=== PATIENT | male | born 1965 | race African-American/Black ===

== ENCOUNTER 2020-02-03 14:10 | Inpatient (IN) | payer OTHER ==
[~2020-02-03] VITALS: Ht 175.3 cm; Wt 74.4 kg
--- NOTE | 2020-02-03 14:10 | NUR ---
BIB SELF C/O MID STERNAL CHEST PAIN NON RADIATING FOR 3 DAYS, TO ER BED 11, HOOKED TO JAIL OFFICER, CHANGED TO HOSP GOWN, WARM BLANKET PROVIDED, PATIENT AAO x4, BREATHING EVEN AND UNLABORED. AWAITING MD CLARK
--- NOTE | 2020-02-03 14:39 | NUR ---
DR SANABRIA AT BEDSIDE
[2020-02-03] MEDS ORDERED: ATOR80TA PO (14:53)
[2020-02-03] MEDS ORDERED: CARV3.122 PO (14:53)
[2020-02-03] MEDS ORDERED: SACU1TAB PO (14:53)
[2020-02-03] MEDS ORDERED: ASPI-1420 PO (14:53)
[2020-02-03] MEDS ORDERED: SPIR25TA6 PO (14:53)
[2020-02-03 15:00] LABS: BASOPHILS % (AUTO) 0.8 % (0.0-2.0); EOSINOPHILS % (AUTO) 5.6 % (0.0-6.0); HEMATOCRIT 37 % (39-51); HEMOGLOBIN 12.1 g/dL (13.5-17.5); LYMPHOCYTES # (AUTO) 1.4 /CMM (0.8-4.8); LYMPHOCYTES % (AUTO) 29.1 % (20.0-44.0); MEAN CORPUSCULAR HGB CONC 33 g/dl (31.0-36.0); MEAN CORPUSCULAR VOLUME 85 fL (80-96); MONOCYTES # (AUTO) 0.4 /CMM (0.1-1.30); NEUTROPHILS # (AUTO) 2.7 /CMM (1.8-8.9); NEUTROPHILS % (AUTO) 55.5 % (43.0-81.0); PLATELET COUNT (AUTO) 214 /CMM (150-450); RED BLOOD CELL COUNT(AUTO) 4.29 MIL/uL (4.5-6.0); WHITE BLOOD COUNT (AUTO) 4.9 K/uL (4.3-11.0)
--- NOTE | 2020-02-03 15:01 | NUR ---
RAPID COVID SWAB DONE AND SENT TO LAB
[2020-02-03 15:09] LABS: CREATININE 1.2 mg/dL (0.6-1.3); POTASSIUM 3.3 mmol/L (3.5-5.1)
[2020-02-03 15:27] LABS: ALBUMIN 3.6 g/dL (3.4-5.0); BILIRUBIN,DIRECT 0.2 mg/dL (0.0-0.2); BILIRUBIN,TOTAL 0.5 mg/dL (0.2-1.0); TOTAL PROTEIN, SERUM 7.9 g/dL (6.4-8.2)
[2020-02-03] MEDS ORDERED: ASPIRIN 325 MG TABLET PO ONE (16:00)
[2020-02-03] MEDS ORDERED: IOHEXOL-350 100 ML VIAL IV ONE (16:03)
--- NOTE | 2020-02-03 16:09 | NUR ---
PICKED UP BY TUNG FLORENCE VIA RENAE FOR CT SCAN
--- NOTE | 2020-02-03 16:19 | NUR ---
ROOM GIVEN [id number] TELE.
[2020-02-03] MEDS ORDERED: ASPIRIN 325 MG TABLET ONE (16:20)
[2020-02-03] MEDS ORDERED: ONDANSETRON HCL/PF 4 MG/2 ML VIAL IVP PRN (16:30)
[2020-02-03] MEDS ORDERED: NITROGLYCERIN 0.4 MG/TAB BOTTLE SL PRN (16:30)
[2020-02-03] MEDS ORDERED: MAGNESIUM HYDROXIDE 30 ML UDC PO PRN (16:30)
[2020-02-03] MEDS ORDERED: MAG HYDROX/AL HYDROX/SIMETH 30 ML UDC PO PRN (16:30)
[2020-02-03] MEDS ORDERED: ACETAMINOPHEN 325 MG TABLET PO PRN (16:30)
[2020-02-03] MEDS ORDERED: Z GUARD REMEDY 2 OZ OINT TP PRN (16:30)
[2020-02-03] MEDS ORDERED: POTASSIUM CHLORIDE 20 MEQ TAB.PRT.SR PO ONE (16:30)
[2020-02-03] MEDS ORDERED: HYDROCODONE/APAP 5/325MG TABLET PO PRN (16:30)
[2020-02-03] MEDS ORDERED: TEMAZEPAM 15 MG CAPSULE PO PRN (16:30)
--- NOTE | 2020-02-03 16:30 | NUR ---
REPORT GIVEN TO ALBINO PIZANO OF TELE UNIT
--- NOTE | 2020-02-03 16:48 | NUR ---
PATIENT BACK FROM CT SCAN
--- NOTE | 2020-02-03 17:07 | NUR ---
CLARIFIED W LEANN STARKS DNP, PATIENT CAN EAT.
[2020-02-03 17:15] VITALS: BP 136/86
--- NOTE | 2020-02-03 17:15 | NUR ---
Received patient via gurney. Patient with stable gait , able to ambulate. Alert and oriented x4 Patient admitted to Tele , SR on monitor with e levanted p-wave HR 98.Noted with IACD on the left upper chest. Patient's skin assessed and no issues found. Patient denies any pain at this time , not in any distress. Patient on room air tolerated well. IV access to the right AC g 20 hl, flushing well. Patient oriented to room and instructed to use call light for assistance; pt verbalized understanding. SAfety precautions implemented. Potassium PO administrated as ordered. Admit orders received. Will continue to monitor
[2020-02-03 20:00] VITALS: BP 131/72
--- NOTE | 2020-02-03 20:00 | NUR ---
Patient in bed resting comfortably. Patient awake, alert, and oriented x4, able to make needs known. Patient complains of chest pain and rates pain 7 on a 0-10 numerical scale. Will administer pain medication per MD order. Patient breathing even and unlabored on room air. No SOB or acute respiratory distress noted. Noted IV access on right forearm, 20 gauge, patent, dressing dry and intact, no redness, or infiltration noted. Safety measure in place, bed is in the lowest level, bed is locked, alarm is on, side rails x2 are up, and call light is within reach. Will continue to monitor.
--- NOTE | 2020-02-03 20:06 | NUR ---
Patient complains of chest pain. Patient describe pain on the left chest as sharp and rates pain a 7 on a 0-10 numerical scale. Administered PRN [place] per MD order. Will continue to monitor.
[2020-02-04] VITALS: BP 123/58
[2020-02-04 04:00] VITALS: BP_SYST 123; BP_SYST 131; BP_DIAS 58; BP_DIAS 88
--- NOTE | 2020-02-04 06:38 | NUR ---
RN CLOSING NOTE: Patient in bed sleeping comfortably. Patient breathing even and unlabored. No SOB or acute respiratory distress noted. Safety measures are maintained, bed is in the lowest level, bed is locked, side rails x2 are up, and call light is within reach. Will endorse to morning nurse.
[2020-02-04] MEDS: PANTOPRAZOLE 40 MG TABLET.DR PO SCH (06:46)
--- NOTE | 2020-02-04 07:30 | NUR ---
Tele/RN - Assessment Patient is awake, A/O x 4, denies chest pain at this time, no apparent distress, stable on room air, tele shows NSR. Saline lock on the RFA is patent and intact with no signs of infiltration. Skin is intact. Patient independent with ADLs, ambulates with steady gait. Labs reviewed, no critical results. Patient updated on plan of care and in agreement. Will continue with current medical management.
[2020-02-04 08:00] VITALS: BP 126/65
[2020-02-04] MEDS: MORPHINE SULFATE INJ 2 MG/ML DISP.SYRIN IV PRN ×3 (08:37→21:27)
[2020-02-04 08:56] LABS: CALCIUM, SERUM 8.4 mg/dL (8.5-10.1); CREATININE 1.1 mg/dL (0.6-1.3); PHOSPHORUS 2.7 mg/dL (2.5-4.9); POTASSIUM 3.7 mmol/L (3.5-5.1)
[2020-02-04] MEDS ORDERED: ASPIRIN 81 MG TAB.CHEW PO SCH (09:00)
[2020-02-04 09:03] LABS: BASOPHILS % (AUTO) 0.9 % (0.0-2.0); EOSINOPHILS % (AUTO) 7.6 % (0.0-6.0); HEMATOCRIT 38 % (39-51); LYMPHOCYTES # (AUTO) 1.8 /CMM (0.8-4.8); LYMPHOCYTES % (AUTO) 37.4 % (20.0-44.0); MEAN CORPUSCULAR HGB CONC 32 g/dl (31.0-36.0); MEAN CORPUSCULAR VOLUME 86 fL (80-96); MONOCYTES # (AUTO) 0.6 /CMM (0.1-1.30); MONOCYTES % (AUTO) 12.3 % (2.0-12.0); NEUTROPHILS % (AUTO) 41.8 % (43.0-81.0); PLATELET COUNT (AUTO) 204 /CMM (150-450); WHITE BLOOD COUNT (AUTO) 4.7 K/uL (4.3-11.0)
[2020-02-04 09:11] LABS: THYROID STIMULATING HORMONE 0.261 uIU/mL (0.358-3.74)
[2020-02-04] MEDS: CARVEDILOL 3.125 MG TABLET PO SCH ×2 (14:00→16:15)
--- NOTE | 2020-02-04 14:30 | NUR ---
Tele/RN - Medication (Coreg) Per pharmacist, hold the 14:00 dose and give the 17:00 dose instead for accurate timing.
[2020-02-04] MEDS: SPIRONOLACTONE 25 MG TABLET PO SCH (15:12)
[2020-02-04] MEDS: ENOXAPARIN SODIUM 40 MG/0.4 ML DISP.SYRIN SQ SCH (15:14)
[2020-02-04 16:00] VITALS: BP 120/61
--- NOTE | 2020-02-04 17:45 | NUR ---
Tele/RN - End of shift summary No significant change in condition seen, reports occasional sharp mid-chest pain TN 8/10, Morphine 2 mg IVP given with relief, NSR on the monitor, no c/o SOB, stable on room air. Per Dr. Kirby (cardio), plan for left heart cath with possible PCI on Tuesday 02/06. Patient agreeable for procedure. Spoke with and requested to bring in home medication Entresto and she will bring it tomorrow. Will continue with current plan of care.
[2020-02-04 20:00] VITALS: BP_SYST 110; BP_SYST 156; BP_DIAS 103; BP_DIAS 58
[2020-02-04] MEDS: ATORVASTATIN 40 MG TABLET PO SCH (21:27)
[2020-02-05] VITALS (7 sets, daily range): BP systolic 107–147; BP diastolic 61–80
--- NOTE | 2020-02-05 06:00 | NUR ---
SILVICULTURIST CLOSING NOTES: PATIENT IN BED ASLEEP, EASILY AROUSABLE. A/O X4. NO S/S OF DISTRESS NOTED. NO COMPLAIN OF PAIN AT THIS TIME. CALL LIGHT WITHIN REACH. BED IN LOWEST AND LOCKED POSITION. AMBULATORY, STEADY.
--- NOTE | 2020-02-05 07:00 | NUR ---
RECEIVED A CALL LAST NIGHT FROM THE PATIENT'S , AND SHE MENTIONED THAT SHE WILL BRING THE MED ENTRESTO TODAY, ENDORSED TO RN IMMSP.
--- NOTE | 2020-02-05 07:05 | NUR ---
PULP BLEACHER OPENING NOTES RECEIVED PT AWAKE IN BED AT THIS TIME. PT AOX4. PT ABLE TO MAKE NEEDS KNOWN. NO SOB NOTED, NO S/S OF ANY ACUTE DISTRESS NOTED. PT ON EXTERNAL MEAT AND SEAFOOD MANAGER READING SR IN THE 70S. NO C/O PAIN AT THIS TIME. RESPIRATIONS ARE EVEN AND UNLABORED WITH EQUAL RISE AND FALL IN CASE. PT STABLE ON RA. IV ACCESS NOTED IN RFA G#20 INTACT, PATENT AND FLUSHING WELL. SAFETY PRECAUTION IN PLACE AND MAINTAINED AT ALL TIMES. BED IN LOWEST LOCKED POSITION, HOB ELEVATED, SIDE RAILS UP X 2, CALL LIGHT AND TABLE WITHIN REACH. WILL CONTINUE TO MONITOR.
[2020-02-05 07:26] LABS: CALCIUM, SERUM 8.8 mg/dL (8.5-10.1); CREATININE 1.1 mg/dL (0.6-1.3); POTASSIUM 4.1 mmol/L (3.5-5.1)
[2020-02-05] MEDS: PANTOPRAZOLE 40 MG TABLET.DR PO SCH (08:24)
[2020-02-05] MEDS: SPIRONOLACTONE 25 MG TABLET PO SCH (08:35)
[2020-02-05] MEDS: ASPIRIN EC 325 MG TABLET.DR PO SCH (08:35)
[2020-02-05] MEDS: CARVEDILOL 3.125 MG TABLET PO SCH ×2 (08:36→16:51)
--- NOTE | 2020-02-05 11:00 | NUR ---
PT REQUESTED DOUBLE PORTION OF FOOD FROM DR STARKS, PER DOCTORS ORDER, PT CAN HAVE DOUBLE PORTION OF FOOD. DIETARY MADE AWARE, WILL CONTINUE TO MONITOR
--- NOTE | 2020-02-05 11:15 | NUR ---
ENTRESTO 24MG/25MG (24.5 PILLS) OF PT'S HOME MEDICATION BROUGHT IN BY . MEDICATION GIVEN TO GEODETIC ADVISOR AT THIS TIME. WILL CONTINUE WITH PLAN OF CARE
[2020-02-05] MEDS: ENOXAPARIN SODIUM 40 MG/0.4 ML DISP.SYRIN SQ SCH (16:20)
[2020-02-05] MEDS: ENTRESTO PO SCH (16:54)
--- NOTE | 2020-02-05 18:54 | NUR ---
SENIOR DATABASE ADMINISTRATOR CLOSING NOTES PT AWAKE IN BED AT THIS TIME. PT REMAINED STABLE THROUGHOUT SHIFT. ALL CARE, NEED, MEDICATIONS AND TREATMENT ADMINISTERED ANTICIPATED PER ORDER. PT KEPT CLEAN AND DRY SAFETY PRECAUTION IN PLACE AND MAINTAINED AT ALL TIMES. BED IN LOWEST LOCKED POSITION, HOB ELEVATED, SIDE RAILS UP X 2, CALL LIGHT AND TABLE WITHIN REACH. WILL CONTINUE TO MONITOR.
--- NOTE | 2020-02-05 19:35 | NUR ---
CONTACT LENS CURVE GRINDER NOTES RECEIVED ON BED A/O X4,BREATHING REGULAR,NOT IN ANY FORM OF DISTRESS.ABLE TO VERBALIZED NEEDS,WITH RFA SALINE LOCK FOR MEDS,LFA AV SHUNT FOR HD ACCESS.NO COMPLIANTA AT THE MOMENT.CALL LIGHT IN REACH,NEEDS ANTICIPATED. Addendum: 02/05/20 at 2035 by QUINTIN TUCKER RN WRONG ENTRY ON NOTES
--- NOTE | 2020-02-05 19:40 | NUR ---
LONGSHORE EQUIPMENT OPERATOR NOTES RECEIVED ON BED,A/O X4,ABLE TO VERBALIZED NEEDS,SALINE LOCK RFA INTACT AND PATENT.DENIES DISCOMFORTS AT THE MOMENT.CALL LIGHT IN REACH,NEEDS ANTICIPATED.
[2020-02-05] MEDS: ATORVASTATIN 40 MG TABLET PO SCH (21:19)
[2020-02-06] VITALS: BP 116/72
[2020-02-06 04:00] VITALS: BP 114/77
--- NOTE | 2020-02-06 07:10 | NUR ---
MS RN NOTES DENIES DISCOMFORTS,SLEEP WELL THRU OUT SHIFT.IN NO ACUTE DISTRESS.
[2020-02-06 08:00] VITALS: BP 115/69
--- NOTE | 2020-02-06 08:04 | NUR ---
MS/RN OPENING NOTE RECEIVED PATIENT FROM KNITTING INSPECTOR. A/0 X4 PATIENT ON ROOM AIR, TOLERATING WELL. BREATHING EVEN, NON LABORED, NO SOB NOTED. ASHLEIGH # 20 SL INTACT AND PATENT. SAFETY MEASURES IN PLACE, BED LOCKED AND IN LOWEST POSITION, CALL LIGHT WITHIN REACH. WILL CONTINUE TO MONITOR AND ENSURE SAFETY.
[2020-02-06] MEDS: SPIRONOLACTONE 25 MG TABLET PO SCH (08:43)
[2020-02-06] MEDS: PANTOPRAZOLE 40 MG TABLET.DR PO SCH (08:43)
[2020-02-06] MEDS: ASPIRIN EC 325 MG TABLET.DR PO SCH (08:43)
[2020-02-06] MEDS: CARVEDILOL 3.125 MG TABLET PO SCH ×2 (08:44→16:40)
[2020-02-06] MEDS: ENTRESTO PO SCH ×2 (08:44→16:38)
[2020-02-06] MEDS: ENOXAPARIN SODIUM 40 MG/0.4 ML DISP.SYRIN SQ SCH (14:44)
--- NOTE | 2020-02-06 18:55 | NUR ---
MS/RN CLOSING NOTE PATIENT REMAINS IN STABLE CONDITION. A/0 X4 PATIENT ON ROOM AIR, TOLERATING WELL. BREATHING EVEN, NON LABORED, NO SOB NOTED. TELE MONITOR READING NSR 67. RFA # 20 SL INTACT AND PATENT. SAFETY MEASURES IN PLACE WILL ENDORSE TO DIGITAL STRATEGY MANAGER.
[2020-02-06 20:00] VITALS: BP 121/70
--- NOTE | 2020-02-06 20:00 | NUR ---
RN NOTE RECEIVED PT IN BED. PT IS A/A/O X4. PT IS ON RA SATING 99%, HAS UNLABORED BREATHING. SAFETYU MEASURE IN PLACE.
--- NOTE | 2020-02-06 21:45 | NUR ---
RN NOTE PT REFUSES TO HAVE PCI IN THE MORNING, AND WANTS TO LEAVE AMA ,CHARGE NURSE STEPHANIE CONTACTED DR ESCALONA , WAITING FOR TO CALL BACK.
[2020-02-06] MEDS: ATORVASTATIN 40 MG TABLET PO SCH (21:57)
--- NOTE | 2020-02-06 22:05 | NUR ---
RN NOTE CHARGE NURSE STEPHANIE TALKED TO IVY HOT MILL OBSERVER FOR DR LIAO ,INFORMED DR PT IS REFUSING PCI AND WANTS TO LEAVE AMA.
--- NOTE | 2020-02-06 23:36 | NUR ---
RN NOTE PT HEFT AMA, THOUGHT PT ABOUT RISKS OF LEAVING AMA.
--- NOTE | 2020-02-06 23:37 | NUR ---
RN NOTE ID BAND AND IV REMOVED.
== END 2020-02-06 23:35 | disposition left against medical advice (07) | DRG 190 ==
LOC: ER 14:20 → TELE 16:35
PROVIDERS: ADMIT Nurse Practitioner Acute Care; ATTEND Nurse Practitioner Acute Care
DX: I21.4 Non-ST elevation (NSTEMI) myocardial infarction (principal); F41.9 Anxiety disorder, unspecified; E11.9 Type 2 diabetes mellitus without complications; I25.2 Old myocardial infarction; I11.0 Hypertensive heart disease with heart failure; G89.29 Other chronic pain; Z71.6 Tobacco abuse counseling; Z95.810 Presence of automatic (implantable) cardiac defibrillator; Z91.19 Patient's noncompliance with other medical treatment and regimen; F15.10 Other stimulant abuse, uncomplicated; F17.210 Nicotine dependence, cigarettes, uncomplicated; I50.21 Acute systolic (congestive) heart failure
CPT/HCPCS: 36415; 71045-TC; 80048-TC; 80061-TC; 80076-TC; 83735-TC; 83880; 84100-TC; 84443-TC; 84484-TC; 85025-TC; 87081-TC; 93307-TC; C9803; G0378; G0480; J1650; J2270; Q9967

== ENCOUNTER 2020-02-26 01:06 | Emergency (ER) | payer OTHER ==
[~2020-02-26] VITALS: Ht 175.3 cm; Wt 72.6 kg
[~2020-02-26 01:06] MED LIST: ASPI-1420 PO; ATOR80TA PO; CARV3.122 PO; SACU1TAB PO; SPIR25TA6 PO
[2020-02-26 01:48] VITALS: BP 118/82
--- NOTE | 2020-02-26 02:53 | NUR ---
Patient discharged to home in stable condition. Written and verbal after care instructions given. Patient verbalizes understanding of instruction.pt. ambulatory with a steady gait
== END 2020-02-26 02:54 | disposition home or self-care (01) ==
LOC: ER 01:10
DX: F15.10 Other stimulant abuse, uncomplicated (principal); R22.32 Localized swelling, mass and lump, left upper limb; M79.642 Pain in left hand; I11.0 Hypertensive heart disease with heart failure; I50.9 Heart failure, unspecified; F17.200 Nicotine dependence, unspecified, uncomplicated; Z79.899 Other long term (current) drug therapy
CPT/HCPCS: 73120-TC

== ENCOUNTER 2020-11-24 18:26 | Inpatient (IN) | payer OTHER ==
[~2020-11-24] VITALS: Ht 175.3 cm; Wt 66.7 kg
--- NOTE | 2020-11-24 19:13 | NUR ---
BIBRA99 FRM SCHVN C/O CHEST PRESSURE, DIZZINESS AND WEAK SINCE THIS AM. ON ROOM AIR, BREATHING EVENLY AND UNLABORED, KEPT COMFORTABLE, WILL CONTINUE TO MONITOR ACCORDINGLY.
--- NOTE | 2020-11-24 19:18 | NUR ---
report given to ambrose young for rosamaria.
[2020-11-24 19:19] LABS: BASOPHILS # (AUTO) 0.1 K/uL (0.0-0.2); BASOPHILS % (AUTO) 0.8 % (0.0-2.0); EOSINOPHILS % (AUTO) 4.8 % (0.0-6.0); HEMATOCRIT 44 % (39-51); HEMOGLOBIN 14.2 g/dL (13.5-17.5); LYMPHOCYTES % (AUTO) 41.3 % (20.0-44.0); MEAN CORPUSCULAR HGB CONC 33 g/dl (31.0-36.0); MEAN CORPUSCULAR VOLUME 84 fL (80-96); MONOCYTES # (AUTO) 0.5 K/uL (0.1-1.30); NEUTROPHILS # (AUTO) 3.4 K/uL (1.8-8.9); NEUTROPHILS % (AUTO) 46.1 % (43.0-81.0); PLATELET COUNT (AUTO) 270 K/uL (150-450); RED BLOOD CELL COUNT(AUTO) 5.17 MIL/uL (4.5-6.0); WHITE BLOOD COUNT (AUTO) 7.3 K/uL (4.3-11.0)
--- NOTE | 2020-11-24 19:26 | NUR ---
RAD AT BEDSIDE
[2020-11-24 19:27] LABS: POTASSIUM 4.2 mmol/L (3.5-5.1)
[2020-11-24] MEDS ORDERED: NITROGLYCERIN PACKET 1 GM PACKET TD ONE (20:00)
[2020-11-24] MEDS ORDERED: ASPIRIN 325 MG TABLET PO ONE (20:00)
[2020-11-24] MEDS ORDERED: NITROGLYCERIN PACKET 1 GM PACKET ONE (20:01)
[2020-11-24] MEDS ORDERED: ASPIRIN 325 MG TABLET ONE (20:01)
--- NOTE | 2020-11-24 20:12 | NUR ---
COVID SWAB COLLECTED AND SENT TO LAB
[2020-11-24] MEDS ORDERED: LABETALOL 20 MG/4 ML VIAL IV PRN (21:00)
[2020-11-24] MEDS ORDERED: ACETAMINOPHEN 325 MG TABLET PO PRN (21:00)
[2020-11-24] MEDS ORDERED: ONDANSETRON HCL/PF 4 MG/2 ML VIAL IVP PRN (21:00)
[2020-11-24] MEDS ORDERED: hydrALAZINE HCL IV 20 MG VIAL IV PRN (21:00)
[2020-11-24] MEDS ORDERED: MORPHINE SULFATE INJ 2 MG/ML DISP.SYRIN IV PRN (21:00)
--- NOTE | 2020-11-24 21:42 | NUR ---
US AT BEDSIDE
--- NOTE | 2020-11-24 21:56 | NUR ---
tele 118
--- NOTE | 2020-11-24 22:18 | NUR ---
JULIANA TO CALL BACK FOR REPORT
--- NOTE | 2020-11-24 22:33 | NUR ---
REPORT GIVEN TO MIKAYLA PIZANO
--- NOTE | 2020-11-24 22:43 | NUR ---
PATIENT TRANSFERRED UNDER ACLS
--- NOTE | 2020-11-24 22:45 | NUR ---
TRANSITION MANAGERPUBLIC SAFETY OFFICER NOTE PT TRANSPORTED VIA GURNEY TO UNIT AT THIS TIME. PT ADMITTED TO TELE UNDER DR RILEY FOR ADMITTING DX OF CHEST PAIN. A/O X4, ABLE TO MAKE NEEDS KNOWN. PT IS STABLE ON ROOM AIR. NO SOB OR S/S OF RESPIRATORY DISTRESS NOTED. PT ON EXTERNAL LEG BREAKER READING SR AT 70BPM. PT HAS NO C/O PAIN OR DISCOMFORT AT THIS TIME. IV ACCESS IN RIGHT WRIST #20, INTACT AND PATENT. SKIN IS INTACT. ORIENTED PT TO STAFF, ROOM, AND UNIT. SAFETY PRECAUTIONS MAINTAINED. BED IN LOWEST LOCKED POSITION, HOB ELEVATED, SIDE RAILS UP X2. CALL LIGHT AND TABLE WITHIN REACH. WILL CONTINUE TO MONITOR.
[2020-11-24] MEDS: ENOXAPARIN SODIUM 40 MG/0.4 ML DISP.SYRIN SQ SCH (23:01)
[2020-11-24 23:20] VITALS: BP 107/69
--- NOTE | 2020-11-24 23:25 | NUR ---
RN PAIN PT C/O NON-RADIATING TIGHTNESS IN THE CHEST, RATED 8/10 ON PAIN SCALE. VSS. PER PT REQUEST, ADMINISTERED MORPHINE 2MG IV Q4H PRN FOR PAIN. WILL REASSESS IN 30 MINS AND CONTINUE TO MONITOR PT.
[2020-11-25] VITALS: BP 107/69
[2020-11-25 04:00] VITALS: BP 127/84
--- NOTE | 2020-11-25 06:21 | NUR ---
PETROLEUM REFINERY OPERATOR CLOSING NOTE PT IS AWAKE IN BED. A/O X4, ABLE TO MAKE NEEDS KNOWN. PT IS STABLE ON ROOM AIR. NO SOB OR S/S OF RESPIRATORY DISTRESS NOTED. PT ON EXTERNAL TIER IN READING SR AT 72BPM. PT HAS NO C/O PAIN OR DISCOMFORT AT THIS TIME. IV ACCESS IN RIGHT WRIST #20, INTACT AND PATENT. ALL NEEDS HAVE BEEN MET. PAIN MANAGEMENT ADMINISTERED PER ORDER. SAFETY PRECAUTIONS MAINTAINED AT ALL TIMES. BED IN LOWEST LOCKED POSITION, HOB ELEVATED, SIDE RAILS UP X2. CALL LIGHT AND TABLE WITHIN REACH. WILL ENDORSE TO ONCOMING NURSE FOR JOHNIE.
--- NOTE | 2020-11-25 06:55 | NUR ---
RN NOTE PT REFUSED BLOOD DRAW AT THIS TIME AND STATED THAT "I AM HERE FOR MY HEART AND WANT TO SPEAK WITH THE DOCTOR FIRST." EDUCATED PT ON RISKS AND BENEFITS OF REFUSING BLOOD DRAW. PT VERBALIZED UNDERSTANDING AND CONTINUES TO REFUSE. WILL CONTINUE TO MONITOR.
[2020-11-25 08:00] VITALS: BP 125/72
[2020-11-25] MEDS: ASPIRIN EC 81 MG TABLET.DR PO SCH (08:22)
[2020-11-25] MEDS: CARVEDILOL 3.125 MG TABLET PO SCH ×2 (08:22→16:03)
[2020-11-25] MEDS: SPIRONOLACTONE 25 MG TABLET PO SCH (08:22)
[2020-11-25] MEDS: CLOPIDOGREL BISULFATE 75 MG TABLET PO SCH (08:22)
--- NOTE | 2020-11-25 08:49 | NUR ---
RN OPENING NOTES PT REPORTS CHEST PAIN 9 OF 10. REQUESTED PAIN MEDICATIONS. PT ON RA. VS STABLE. PT IS AMBULATING. PT IS A/O X4. AWAITING ECHO RESULTS.
--- NOTE | 2020-11-25 08:50 | NUR ---
RN NOTES PT REQUESTED MORPHINE. MORPHINE PULLED FROM [email or web address], PT THEN DECLINED MORPHINE AND REQUESTED NORCO. MORPHINE RETURNED AND GIVEN NORCO INSTEAD. Addendum: 11/25/20 at 1212 by CHEVY JOINER RN NORCO GIVEN AT 0830. FORGOT TO SCAN 1ST DOSE OF NARCO. SECOND SCANNED AT 12PM
[2020-11-25] MEDS: HYDROCODONE/APAP 5/325MG TABLET PO PRN ×3 (11:58→19:42)
[2020-11-25 12:00] VITALS: BP 125/72
[2020-11-25 14:14] LABS: BASOPHILS # (AUTO) 0.1 K/uL (0.0-0.2); BASOPHILS % (AUTO) 0.8 % (0.0-2.0); EOSINOPHILS % (AUTO) 5.4 % (0.0-6.0); HEMATOCRIT 41 % (39-51); HEMOGLOBIN 13.2 g/dL (13.5-17.5); LYMPHOCYTES # (AUTO) 2.9 K/uL (0.8-4.8); LYMPHOCYTES % (AUTO) 43.5 % (20.0-44.0); MEAN CORPUSCULAR HGB CONC 33 g/dl (31.0-36.0); MEAN CORPUSCULAR VOLUME 84 fL (80-96); MONOCYTES # (AUTO) 0.6 K/uL (0.1-1.30); MONOCYTES % (AUTO) 8.5 % (2.0-12.0); NEUTROPHILS # (AUTO) 2.8 K/uL (1.8-8.9); NEUTROPHILS % (AUTO) 41.8 % (43.0-81.0); PLATELET COUNT (AUTO) 238 K/uL (150-450); RED BLOOD CELL COUNT(AUTO) 4.83 MIL/uL (4.5-6.0); WHITE BLOOD COUNT (AUTO) 6.7 K/uL (4.3-11.0)
--- NOTE | 2020-11-25 14:32 | NUR ---
RN NOTES SPOKE TO RADIOLOGY. CARDIAC EXAM SCHEDULED FOR TOMORROW
[2020-11-25 14:42] LABS: ALBUMIN 3.2 g/dL (3.4-5.0); BILIRUBIN,TOTAL 0.2 mg/dL (0.2-1.0); CALCIUM, SERUM 8.5 mg/dL (8.5-10.1); CREATININE 1.1 mg/dL (0.6-1.3); PHOSPHORUS 3.4 mg/dL (2.5-4.9); POTASSIUM 4.3 mmol/L (3.5-5.1); TOTAL PROTEIN, SERUM 7.4 g/dL (6.4-8.2)
[2020-11-25 16:00] VITALS: BP 115/69
--- NOTE | 2020-11-25 17:40 | NUR ---
RN NOTE SPOKE TO [address] PT WILL BE TRANSFERRED TO 314-1. PT STABLE NOT ON TELE OR O2. PT WILL BE TRANSFERRED ON A WHEELCHAIR.
--- NOTE | 2020-11-25 18:15 | NUR ---
RECEIVED PATIENT FROM JULIANA. WILL CONTINUE TO MONITOR.
--- NOTE | 2020-11-25 19:52 | NUR ---
RECEIVED PT IN BED. PT IS AOx4. ABLE TO MAKE NEEDS KNOWN. ON ROOM AIR AND TOLERATING WELL. NO S/SX OF RESPIRATORY DISTRESS NOTED. NO SOB NOTED. IV ACCESS IN R WRIST #20G. IV IS PATENT, INTACT, AND FLUSHING WELL. SAFETY PRECAUTIONS IN PLACE: BED IN LOWEST, LOCKED POSITION, BRAKES ON, SIDERAILS UPx2. WILL CONTINUE TO MONITOR.
--- NOTE | 2020-11-25 19:56 | NUR ---
ADMINISTERED NORCO FOR PAIN PER MD ORDER @ 1942. WILL CONTINUE TO MONITOR.
[2020-11-25 20:00] VITALS: BP 125/82
[2020-11-25] MEDS: ATORVASTATIN 40 MG TABLET PO SCH (21:02)
[2020-11-25] MEDS: ENOXAPARIN SODIUM 40 MG/0.4 ML DISP.SYRIN SQ SCH ×2 (21:13→21:24)
--- NOTE | 2020-11-25 21:25 | NUR ---
PT REFUSED ENOXAPARIN.
[2020-11-26 06:30] LABS: BASOPHILS % (AUTO) 0.9 % (0.0-2.0); EOSINOPHILS % (AUTO) 6.1 % (0.0-6.0); HEMATOCRIT 41 % (39-51); HEMOGLOBIN 13.3 g/dL (13.5-17.5); LYMPHOCYTES # (AUTO) 2.2 K/uL (0.8-4.8); LYMPHOCYTES % (AUTO) 42.4 % (20.0-44.0); MEAN CORPUSCULAR HGB CONC 33 g/dl (31.0-36.0); MEAN CORPUSCULAR VOLUME 84 fL (80-96); MONOCYTES # (AUTO) 0.5 K/uL (0.1-1.30); MONOCYTES % (AUTO) 9.1 % (2.0-12.0); NEUTROPHILS # (AUTO) 2.2 K/uL (1.8-8.9); NEUTROPHILS % (AUTO) 41.5 % (43.0-81.0); PLATELET COUNT (AUTO) 248 K/uL (150-450); RED BLOOD CELL COUNT(AUTO) 4.83 MIL/uL (4.5-6.0); WHITE BLOOD COUNT (AUTO) 5.3 K/uL (4.3-11.0)
--- NOTE | 2020-11-26 06:34 | NUR ---
MS RN CLOSING NOTES PT IN BED, SLEEPING. PT IS AOx4. ABLE TO MAKE NEEDS KNOWN. ON ROOM AIR AND TOLERATING WELL. NO S/SX OF RESPIRATORY DISTRESS NOTED. NO SOB NOTED. IV ACCESS IN R WRIST #20G. IV IS PATENT, INTACT, AND FLUSHING WELL. ALL NEEDS MET. PAIN TREATED. PT KEPT CLEAN AND DRY. SAFETY PRECAUTIONS IN PLACE: BED IN LOWEST, LOCKED POSITION, BRAKES ON, SIDERAILS UPx2. CALL LIGHT AND TABLE WITHIN REACH. WILL ENDORSE TO ONCOMING SHIFT.
[2020-11-26 07:19] LABS: ALBUMIN 3.3 g/dL (3.4-5.0); BILIRUBIN,TOTAL 0.2 mg/dL (0.2-1.0); CALCIUM, SERUM 8.6 mg/dL (8.5-10.1); MAGNESIUM 2.1 mg/dL (1.8-2.4); PHOSPHORUS 4.2 mg/dL (2.5-4.9); POTASSIUM 4.2 mmol/L (3.5-5.1); TOTAL PROTEIN, SERUM 7.7 g/dL (6.4-8.2)
--- NOTE | 2020-11-26 07:54 | NUR ---
RN OPENING NOTE PT AWAKE IN BED RESTING. ON RA WITH NO SOB OR RESPIRATORY DISTRESS PRESENT. O2 SAT >95%. A/O X4 AND KAZAKH SPEAKING. NO COMPLAINT OF PAIN OR NAUSEA PRESENT. NO BRANDING MACHINE TENDER PRESENT. NO EDEMA PRESENT. SELF AMBULATORY WITH BATHROOM PRIVILEGES. SKIN IS INTACT. NPO STATUS D/T UPCOMING PROCEDURE. SKIN IS INTACT. IV PRESENT ON R WRIST 20G AND FLUSHES WELL. SALINE LOCKED. LABS AND ORDERS REVIEWED. SAFETY MEASURES IN PLACE. SIDE RAILS RAISED. BED LOWERED. CALL LIGHT WITHIN REACH. WILL CONTINUE TO MONITOR.
[2020-11-26 08:00] VITALS: BP 138/85
[2020-11-26] MEDS: ASPIRIN EC 81 MG TABLET.DR PO SCH (08:16)
[2020-11-26] MEDS: HYDROCODONE/APAP 5/325MG TABLET PO PRN ×4 (08:16→21:31)
[2020-11-26] MEDS: CLOPIDOGREL BISULFATE 75 MG TABLET PO SCH (08:16)
[2020-11-26] MEDS: SPIRONOLACTONE 25 MG TABLET PO SCH (08:16)
[2020-11-26] MEDS: CARVEDILOL 3.125 MG TABLET PO SCH ×2 (09:00→17:41)
--- NOTE | 2020-11-26 11:38 | NUR ---
RN NOTE PT CAME OUT OF ROOM, COMPLAINING THAT NO PSYCH EVAL WAS DONE TODAY. NO EVAL ORDERED, NO INDICATIONS NOTED. MD NOTIFIED AND WILL SPEAK TO PT.
[2020-11-26 16:00] VITALS: BP 137/98
--- NOTE | 2020-11-26 18:48 | NUR ---
RN CLOSING NOTE PT AWAKE IN BED RESTING. ON RA WITH NO SOB OR RESPIRATORY DISTRESS PRESENT. O2 SAT >95%. A/O X4 AND ESTONIAN SPEAKING. NO COMPLAINT OF PAIN OR NAUSEA PRESENT. NO FINANCIAL AIDS OFFICER PRESENT. NO EDEMA PRESENT. SELF AMBULATORY WITH BATHROOM PRIVILEGES. SKIN IS INTACT. SKIN IS INTACT. IV PRESENT ON R WRIST 20G AND FLUSHES WELL. SALINE LOCKED. LABS AND ORDERS REVIEWED. SAFETY MEASURES IN PLACE. SIDE RAILS RAISED. BED LOWERED. CALL LIGHT WITHIN REACH. WILL GIVE REPORT TO BE GIVEN TO NIGHT NURSE FOR JOHNIE.
--- NOTE | 2020-11-26 19:48 | NUR ---
MS RN OPENING NOTES RECEIVED PT IN BED. PT IS AOx4. ABLE TO MAKE NEEDS KNOWN. ON ROOM AIR AND TOLERATING WELL. NO S/SX OF RESPIRATORY DISTRESS NOTED. NO SOB NOTED. IV ACCESS IN R FA #20G. IV IS PATENT, INTACT, AND FLUSHING WELL. SAFETY PRECAUTIONS IN PLACE: BED IN LOWEST, LOCKED POSITION, BRAKES ON, SIDERAILS UPx2. TABLE AND CALL LIGHT WITHIN REACH. WILL CONTINUE TO MONITOR.
[2020-11-26 20:00] VITALS: BP 112/69
[2020-11-26] MEDS: ATORVASTATIN 40 MG TABLET PO SCH (21:24)
--- NOTE | 2020-11-26 21:31 | NUR ---
ADMINISTERED NORCO PER MD ORDER FOR PAIN. WILL CONTINUE TO MONITOR.
--- NOTE | 2020-11-27 06:56 | NUR ---
MS RN CLOSING NOTES PT IN BED, ASLEEP, AWAKENS TO VERBAL STIMULI. PT IS AOx4. ABLE TO MAKE NEEDS KNOWN. ON ROOM AIR AND TOLERATING WELL. NO S/SX OF RESPIRATORY DISTRESS NOTED. NO SOB NOTED. IV ACCESS IN R FA #20G. IV IS PATENT, INTACT, AND FLUSHING WELL. ALL NEEDS MET. PT KEPT CLEAN AND DRY. SAFETY PRECAUTIONS IN PLACE: BED IN LOWEST, LOCKED POSITION, BRAKES ON, SIDERAILS UPx2. TABLE AND CALL LIGHT WITHIN REACH. WILL ENDORSE TO ONCOMING SHIFT.
--- NOTE | 2020-11-27 07:35 | NUR ---
MS RN OPENING NOTE RECEIVED PATIENT IN BED, AWAKE. ALERT AND ORIENTED X 4. NO S/S OF DISTRESS NOTED. NO COMPLAINTS OF PAIN AT THIS TIME. ABLE TO MAKE NEEDS KNOWN. BREATHING IS EVEN AND UNLABORED. IV ACCES RFA#20 PATENT AND INTACT. SAFETY MEASURES IN PLACE WITH BED LOCKED AND LOW POSITION, SIDE RAILS UP X 2. CALL LIGHT WITHIN REACH. WILL CONTINUE TO MONITOR THROUGHOUT SHIFT.
[2020-11-27 08:00] VITALS: BP 125/84
--- NOTE | 2020-11-27 08:45 | NUR ---
PAST DUE ACCOUNTS CLERK NOTE PT DISCHARGED TO [facility]. PT MEDICALLY STABLE AND CLEARED FOR DISCHARGE. ALL DISCHARGE INSTRUCTIONS PROVIDED, PT KEPT CLEAN AND DRY. ALL BELONGINGS ACCOUNTED FOR. IV ACCESS REMOVED, PRESSURE APPLIED, SECURED WITH GAUZE AND TAPE, NO S/O BLEEDING OR INFILTRATION NOTED. PT LEFT UNIT IN STABLE CONDITION, TRANSPORTED IN [place] BY TWO AMBULANCE PERSONNEL.
[2020-11-27] MEDS: CARVEDILOL 3.125 MG TABLET PO SCH ×2 (09:09→16:25)
[2020-11-27] MEDS: SPIRONOLACTONE 25 MG TABLET PO SCH (09:10)
[2020-11-27] MEDS: ASPIRIN EC 81 MG TABLET.DR PO SCH (09:10)
[2020-11-27] MEDS: CLOPIDOGREL BISULFATE 75 MG TABLET PO SCH (09:10)
[2020-11-27] MEDS: HYDROCODONE/APAP 5/325MG TABLET PO PRN ×2 (09:26→16:25)
[2020-11-27] MEDS ORDERED: METOPROLOL TARTRATE INJ 5 MG/5 ML AMPUL ONE (09:47)
[2020-11-27] MEDS ORDERED: NITROGLYCERIN 0.4 MG/TAB BOTTLE ONE (09:47)
[2020-11-27] MEDS ORDERED: IOHEXOL-350 100 ML VIAL IV ONE (09:47)
[2020-11-27] MEDS ORDERED: CT SWABBABLE VALVE TRANS SET 1 EA INFUS.SET MC ONE (09:47)
[2020-11-27] MEDS ORDERED: IV NS 0.9% 250 ML IV ONE (09:47)
[2020-11-27] MEDS ORDERED: METOPROLOL TARTRATE INJ 5 MG/5 ML AMPUL IVP PRN (10:00)
[2020-11-27] MEDS ORDERED: NITROGLYCERIN 0.4 MG/TAB BOTTLE SL ONE (10:00)
--- NOTE | 2020-11-27 10:34 | NUR ---
pt consented to CTA heart ; PIV R upper arm g 18 inserted by Ihsan Simpson RN; given Lopressor 5 mg IVPx1; NTG 0.4 mg SL x1; tolerated procedure; VSS; report given to JERICA Scruggs; sent back to floor via wheelchair
--- NOTE | 2020-11-27 12:30 | NUR ---
SS consult SS consult requested for homelessness. Pt is a 55-year-old, male. SW met with pt at his bedside in the med-surg unit. Pt was alert and oriented x4. Pt presented with a depressed mood and flat affect. Pt appeared well-groomed and appropriately dressed. Pt stated that he is currently homeless and asked SW if he will be able to return to [facility]. Pt requested voluntary psychiatric admission due to current suicidal ideation with a plan to jump in front of a bus. Pt denies current homicidal ideation. Pt stated that he has been living on the [address] for the last 3 weeks. Pt has no access to support or income at this time. Pt has a hx of substance use and reported methamphetamine, cocaine and alcohol use "two times a week." Pt reported that he has been diagnosed with Schizophrenia, Bipolar disorder, and Depression. Pt reported that he has been taking his psychotropic medication and stated that he obtains his medication from hospitals. Pt denied current auditory or visual hallucinations. SW offered the pt homeless, mental health and substance use resources. Pt accepted the resources and thanked SW. Pt signed the homeless waiver and SW filed the waiver in the pt's chart. Pt requested voluntary psychiatric admission. SW will fax clinicals to [facility], for review. PLAN: SW will fax clinicals to [facility], for review. RESOURCES: Year-round shelters: [facility] [address] [place] [address] ; [facility] [address] [place] [address]; [facility] [id number] [facility] [address] SPA 4 | [facility] Recreation [place] Provider: First to Serve Address: [address], [address] # of Beds: 48 Population Served: [facility] Provider: First to Serve Address: [address] [facility], [address] # of Beds: 73 Population Served: [facility] 6 | [facility] Provider: [facility] Last Address: [address] [facility], [address] # of Beds: 63 Population Served: [place] SPA 3 | [facility] Provider: Volunteers nestor [place] Address: [address] [facility], [place], [address] # of Beds: 75 Population Served: [facility] 8 | [facility] Provider: Ign[place] Address: [address] [facility], [address] # of Beds: 80 Population Served: [facility] 1 | [facility] Provider: Volunteers nestor [place] Address: [address] [place] [address], [address] # of Beds: 85 Population Served: [facility] 2 | [facility] Provider: Dionne baez [facility] Address: Confidential (please call for location) # of Beds: 52 Population Served: [facility] 4 | [facility] Provider: [facility] Address: [address] [place] [address] # of Beds: 49 Population Served: [facility] Provider: First To Serve Address: [address] [place] [address] # of Beds: 27 Population Served: [facility] Hygiene: [facility]: [address] [facility] ; [place] [facility] [address] [facility] ; [facility] [address] [facility] . Food Resources: [place] [facility] at [facility]- [address] [place]; Meet Each Need with Dignity ([facility]) [address] [facility]; [facility] [address] [facility]; [facility] [address] [facility]. Mental Health resources provided: [facility] [address] [place] [address] ; [facility] [place] [address] [facility] [address], [place], [place] [phone] ; [facility] [address] [place] [address] ; [facility] Center [address] [place], [place] [address] Healthcare Clinics: [facility] [address] [facility], [address] [place]. [place] ; [facility] [address] [facility] [address] [facility] [address]; [facility] [address] [facility]. [place] [address] [phone]) [phone] Counseling--Outpatient [facility] [address] [facility], [address] [place], [place] [address] (Specializes in in-depth psychotherapy for emotional distress: anxiety, depression, interpersonal conflicts, life transitions, childhood abuse) PSYCHIATRIC OUTPATIENT SERVICES [facility] Partial Hospitalization and Intensive Outpatient Program (Managed Care and [place] Only) [address] [facility] [address] [facility] Partial Hospitalization and Outpatient Program [address] [facility]. [address] [place] [address] [facility] Partial Hospitalization and Outpatient Program [address] [facility]. [place], [place] [id number] [facility] [place] [facility] [address] [facility]. [address] [place], [place] [address] [facility] Partial Hospitalization and Outpatient Program [address] [place], [place] [phone] Substance use resources provided included: [facility] Substance Abuse Self-Helpline (SAS) ; [facility] [address] [facility] [phone] ; [facility] [address] [facility] [address] ; [facility] [address] [facility] [address] ; [facility] [address] [facility] [address] ; [facility] [address] [facility] [phone] ; [facility]; [facility] [place]; [facility]; Alcoholics Anonymous -[facility]
--- NOTE | 2020-11-27 13:17 | NUR ---
SS note Per pt request for voluntary psychiatric admission, SW faxed clinicals to [facility], , for review.
[2020-11-27 15:33] LABS: BASOPHILS # (AUTO) 0.1 K/uL (0.0-0.2); BASOPHILS % (AUTO) 0.9 % (0.0-2.0); EOSINOPHILS % (AUTO) 4.5 % (0.0-6.0); HEMATOCRIT 39 % (39-51); HEMOGLOBIN 12.6 g/dL (13.5-17.5); LYMPHOCYTES # (AUTO) 2.5 K/uL (0.8-4.8); LYMPHOCYTES % (AUTO) 40.5 % (20.0-44.0); MEAN CORPUSCULAR HGB CONC 32 g/dl (31.0-36.0); MEAN CORPUSCULAR VOLUME 85 fL (80-96); MONOCYTES # (AUTO) 0.6 K/uL (0.1-1.30); MONOCYTES % (AUTO) 9.5 % (2.0-12.0); NEUTROPHILS # (AUTO) 2.7 K/uL (1.8-8.9); NEUTROPHILS % (AUTO) 44.6 % (43.0-81.0); PLATELET COUNT (AUTO) 224 K/uL (150-450); RED BLOOD CELL COUNT(AUTO) 4.59 MIL/uL (4.5-6.0); WHITE BLOOD COUNT (AUTO) 6.1 K/uL (4.3-11.0)
[2020-11-27 15:49] LABS: CALCIUM, SERUM 8.5 mg/dL (8.5-10.1); CREATININE 1.1 mg/dL (0.6-1.3); MAGNESIUM 2.1 mg/dL (1.8-2.4); POTASSIUM 4.2 mmol/L (3.5-5.1)
[2020-11-27 16:00] VITALS: BP 119/79
--- NOTE | 2020-11-27 18:49 | NUR ---
MS RN CLOSING NOTE PATIENT IS AWAKE IN BED RESTING COMFORTABLY. NO S/S OF DISTRESS NOTED. NO COMPLAINTS OF PAIN AT THIS TIME. ABLE TO MAKE NEEDS KNOWN. BREATHING IS EVEN AND UNLABORED. PT IS READY TO BE DISCHARGED TO [facility] UNIT 2, BED 2012B. AWAITING TRANSPORTATION AT 2000. WILL ENDORSE CONTINUITY OF CARE TO ONCOMING SHIFT.
--- NOTE | 2020-11-27 19:00 | NUR ---
MS RN OPENING NOTE RECEIVED PT AWAKE IN BED. A/OX4. PT IS STABLE ON ROOM AIR. NO SOB, RESPIRATORY DISTRESS, AND NO C/O PAIN NOTED AT THIS TIME. PT IS AMBULATORY. IV ACCESS IN RIGHT AC #20, INTACT,PATENT, AND FLUSHING WELL. SAFETY MEASURES MAINTAINED, BED IN LOWEST LOCKED POSITION, HOB ELEVATED, SIDE RAILS UP X2. CALL LIGHT AND TABLE WITHIN REACH. WILL CONTINUE TO WITH PLAN OF CARE
--- NOTE | 2020-11-27 19:26 | NUR ---
MS RN NOTE REPORT GIVEN TO JERICA KENNEDY AT [facility].
[2020-11-27 20:00] VITALS: BP 124/71
== END 2020-11-27 21:10 | DRG 199 ==
LOC: ER 18:53 → TELE1 22:21 → MEDSG1 11-25 09:21 → MED 11-25 18:12
PROVIDERS: ADMIT Internal Medicine; ATTEND Nurse Practitioner Family
DX: I16.0 Hypertensive urgency (principal); I21.A1 Myocardial infarction type 2; I42.9 Cardiomyopathy, unspecified; I11.0 Hypertensive heart disease with heart failure; F17.210 Nicotine dependence, cigarettes, uncomplicated; I25.10 Atherosclerotic heart disease of native coronary artery without angina pectoris; I25.2 Old myocardial infarction; Z95.810 Presence of automatic (implantable) cardiac defibrillator; Z91.19 Patient's noncompliance with other medical treatment and regimen; Z95.5 Presence of coronary angioplasty implant and graft; F19.11 Other psychoactive substance abuse, in remission; Z20.822 Contact with and (suspected) exposure to COVID-19; I50.9 Heart failure, unspecified
CPT/HCPCS: 36415; 71045-TC; 75574; 80048-TC; 80053-TC; 83735-TC; 84100-TC; 84484-TC; 85025-TC; 87081-TC; 93307-TC; C9803; G0378; J1650; J2270; J3490; J7050; Q9967